=== PATIENT | female | born 1960 | race Caucasian/White ===

== ENCOUNTER 2021-11-13 10:32 | Emergency (ER) | payer OTHER ==
--- OUTSIDE RECORDS SUMMARY | 2021-11-13 10:35 | XMS REPORT | Continuity of Care Document ---
:1960 Author Organization [facility] t Address [address] [place] [address] Care Team Providers Name Role Phone PCP, PATIENT DOES NOT HAVE A Primary Care Physician Unavaila ble 2, Adc Lab Attending Clinician Unavailable Nadege Younger DO Attending Clinician NADEGE YOUGNER Attending Clinician Unavailable Unknown, Attending Attending Clinician Unavailable UNKNOWN, ATTENDING Attending Clinician Unavailable Doctor Unassigned, [place] Attending Clinician Unavailable HOLLY TUCKER Attending Clinician Unavailable CATHRYN JIMENEZ Attending Clinician Unavailable LISETH LAW Attending Clinician Unavailable Hiral Smith Attending Clinician Liseth Law MD Attending Clinician Liana Herman MD Attending Clinician Estefany Conte Attending Clinician ESTEFANY CONTEH Attending Clinician Unavailable LIANA HERMAN Admitting Clinician Unavailable Liana Herman MD Admitting Clinician Payers Payer Name Policy Type Policy Number Effective Date Expiration Date S ource [employer] CARISSA PAPPAS 2020 00:00:00 Problems Condition Condition Condition Status Onset Resolution Last Treating Co mments Source Name Details Category Date Date Treatment Clinician Date Renal cyst Renal cyst Disease Active 2020-03 U nivers 2 ity of 00:00: [address] No known No known Disease Unive rs active active ity of problems problems [facility] Allergies, Adverse Reactions, Alerts Allergy Allergy Status Severity Reaction(s) Onset Inactive Treating Comm ents Source Name Type Date Date Clinician Propoxyp Propensi Active Nausea 2020-03 Univer s hene ty to and/or 04-02 ity of N-Acetam adverse Vomiting 00:00: [place] inophen reaction 00 Medical s Branch PROPOXYP DRUG Active N/V 2020-03 Univers HENE 30 ity of N-ACETAM 00:00: [place] INOPHEN 00 Medical Branch NO KNOWN Drug Active Univers ALLERGIE Class ity of S [facility] Social History Social Habit Start Date Stop Date Quantity Comments Source History of Cigarette Smoker Universi ty of tobacco use [place] [facility] [place] History SDOH University o f Alcohol Frequency [place] [facility] History SDOH University o f Alcohol Std [place] [facility] Drinks Branch History [facility] University o f Alcohol Binge [place] [facility] [place] Exposure to 2021-10-30 2021-11-09 Not sure [facility] SARS-CoV-2 00:00:00 15:55:00 [facility] (event) Branch Tobacco use and 2021-02-01 2021-02-01 Smokeless tobacco Un iversity of exposure 00:00:00 00:00:00 non-user [facility] Alcohol intake 2021-02-01 2021-02-01 Ex-drinker [facility] 00:00:00 00:00:00 (finding) [facility] Alcohol Comment 2021-02-01 2021-02-01 [facility] of 00:00:00 00:00:00 ages 20-30, has [place] [facility] ica not drank since Branch Sex Assigned At [birth year] Universit y of 00:00:00 00:00:00 [facility] Smoking Status Start Date Stop Date Source Ex-smoker 2021-02-01 00:00:00 2021-02-01 00:00:00 Universi ty of [facility] Never smoker University [facility] Medications Ordered Filled Start Stop Current Ordering Indication Dosage Frequency Signature Comments Components Source Medication Medication Date Date Medication? Clinician (SIG) Name Name ondansetron 2020-03 Yes 4mg 4 mg, Slow Univers (ZOFRAN 2-01 IV Push, ity of (PF)) 19:44: Q6HPRN, [place] injection 4 55 Starting Medi steffi mg on Sat Branch 02/01/21 at 1344, Until Discontinu ed, Routine, Nausea and Vomiting (N/V) acetaminoph 2020-03 Yes 1{tbl} 1 tablet, Univers en-codeine 04-04 Oral, ity of (TYLENOL 19:43: Q4HPRN, [place] #3) 300-30 07 Starting Medic al mg tablet 1 on Sat Branch tablet 02/01/21 at 1343, Until Discontinu ed, Routine, Pain (scale 4-6), Pain (scale 7-10) ondansetron 2020-03- No 4mg 4 mg, Slow Univers (ZOFRAN 04-04 IV Push, ity of (PF)) 06:23: 06:24 ONCE, 1 [place] injection 4 00 :00 dose, On Medi steffi mg Sat Branch 02/01/21 at 0030, CARMELA iopamidol 2020-03- No [id number] 120mL 120 mL, Univers (ISOVUE 04-04 Intravenou ity o f 370-500 mL) 05:30: 04:18 s, ONCE, 1 [place] injection 00 :00 dose, On Medica l 120 mL [facility] Branch 01/31/21 at 2330, Routine ketorolac 2020-03- No 15mg 15 mg, Unive rs (TORADOL) 04-04 Slow IV ity of injection 04:15: 03:16 Push, [place] 15 mg 00 :00 ONCE, 1 Medical dose, On Branch e 01/31/21 at 2215, CARMELA
Fa culty member approving Restricted medication : HIRAL ALCARAZ ondansetron 2020-03- No 4mg 4 mg, Slow Univers (ZOFRAN 04-04 IV Push, ity of (PF)) 04:15: 03:16 ONCE, 1 [place] injection 4 00 :00 dose, On Medi steffi mg [facility] Branch 01/31/21 at 2215, CARMELA NaCl 0.9% 2020-03- No 1000mL at 125 Uni vers (NS) IV 04-04 mL/hr, IV ity of infusion 04:15: 05:00 Infusion, Ashish as 1,000 mL 00 :00 ONCE, 1 Medical dose, On Branch 01/31/21 at 2215, CARMLEA ondansetron 2020-03 Yes [id number] 8mg Take 1 Univers 8 mg 2-01 tablet by ity of disintegrat 00:00: mouth [place] ing tablet 00 every 8 Medica l (eight) Branch hours as needed for Nausea and Vomiting (N/V). ondansetron 2020-03 Yes [id number] 8mg Take 1 Univers 8 mg 2-01 tablet by ity of disintegrat 00:00: mouth [place] ing tablet 00 every 8 Medica l (eight) Branch hours as needed for Nausea and Vomiting (N/V). ondansetron 2020-03 Yes [id number] 8mg Take 1 Univers 8 mg 2-01 tablet by ity of disintegrat 00:00: mouth [place] ing tablet 00 every 8 Medica l (eight) Branch hours as needed for Nausea and Vomiting (N/V). ondansetron 2020-03 Yes [id number] 8mg Take 1 Univers 8 mg 2-01 tablet by ity of disintegrat 00:00: mouth [place] ing tablet 00 every 8 Medica l (eight) Branch hours as needed for Nausea and Vomiting (N/V). ondansetron 2020-03 Yes [id number] 8mg Take 1 Univers 8 mg 2-01 tablet by ity of disintegrat 00:00: mouth [place] ing tablet 00 every 8 Medica l (eight) Branch hours as needed for Nausea and Vomiting (N/V). acetaminoph 2020-03- No [id number] 1{tbl} Take 1 U nivers en-codeine 04-04 tablet by ity of 300-30 mg 00:00: 05:59 mouth [place] tablet 00 :00 every 6 Medical (six) Branch hours as needed for Pain (scale 7-10) for up to 5 days. Indication s: acute pain rOPINIRole 2020-2020- No 1mg Take 1 mg U nivers 1 mg tablet 11-05 by mouth. it y of 00:00: 05:59 [place] 00 :00 Medical Branch rOPINIRole 2020-2020- No 1mg Take 1 mg U nivers 1 mg tablet 11-05 by mouth. it y of 00:00: 05:59 [place] 00 :00 Medical Branch Vital Signs Vital Name Observation Time Observation Value Comments Source Systolic blood 2021-02-01 17:53:00 154 mm[Hg] Univer sity of pressure [facility] Branch Diastolic blood 2021-02-01 17:53:00 95 mm[Hg] Unive rsity of pressure [facility] Branch Heart rate 2021-02-01 17:53:00 86 /min Universi ty of [facility] Body temperature 2021-02-01 17:53:00 36.94 Lianna Univ ersity of [facility] Branch Respiratory rate 2021-02-01 17:53:00 20 /min Univ ersity of [facility] Branch Oxygen saturation in 2021-02-01 17:53:00 99 /min University of Arterial blood by [facility] Pulse oximetry Branch Body height 2021-02-01 08:46:00 182.9 cm Universi ty of [place] [facility] [place] Body weight 2021-02-01 08:46:00 88.451 kg Universi ty of [facility] BMI 2021-02-01 08:46:00 26.45 kg/m2 Universi ty of [facility] Branch Systolic blood 2021-01-31 16:12:00 145 mm[Hg] Univer sity of pressure [facility] Branch Diastolic blood 2021-01-31 16:12:00 84 mm[Hg] Unive rsity of pressure [facility] Branch Oxygen saturation in 2021-01-31 16:11:00 100 /min University of Arterial blood by [facility] Pulse oximetry Branch Heart rate 2021-01-31 16:11:00 85 /min Universi ty of [facility] Body temperature 2021-01-31 16:11:00 36.72 Lianna Univ ersity of [place] [facility] Respiratory rate 2021-01-31 16:11:00 18 /min Univ ersity of [facility] Branch Body height 2021-01-31 16:11:00 182.9 cm Universi ty of [place] [facility] Body weight 2021-01-31 16:11:00 84.823 kg Universi ty of [place] [facility] BMI 2021-01-31 16:11:00 25.36 kg/m2 Universi ty of [facility] Branch Procedures Procedure Date / Time Performed Performing Clinician Sour e PHYSICIAN ORDERS 2021-07-04 05:01:00 Doctor Unassigned, No [facility] [place] Name Medical Branch EXTERNAL PROVIDER 2021-03-28 06:01:00 Doctor Unassigned, No [facility] RECORDS Name Medical [place] UREA NITROGEN, URINE 2021-02-01 15:30:00 [facility] Medical Branch SODIUM, URINE RANDOM 2021-02-01 15:30:00 Kleber [facility] CREATININE, URINE 2021-02-01 15:30:00 Kleber [facility] RANDOM Medical Branch PHOSPHORUS 2021-02-01 11:01:00 Abel [facility] [place] [facility] CREATINE KINASE 2021-02-01 11:01:00 Kleber [facility] FERRITIN SERUM 2021-02-01 11:01:00 Tari [facility] BASIC METABOLIC PANEL 2021-02-01 11:01:00 Kleber [facility] (NA, K, CL, CO2, Medical Branch GLUCOSE, BUN, CREATININE, CA) CBC WITH DIFF 2021-02-01 11:01:00 Kleber [facility] Medical [place] COVID-19 (ID NOW RAPID 2021-02-01 06:01:00 Hiral Alcaraz [facility] TESTING) Medical Branch CT ABDOMEN PELVIS W 2021-02-01 04:20:43 Hiral Alcaraz [facility] CONTRAST Medical Branch COMP. METABOLIC PANEL 2021-02-01 03:12:00 Hiral Alcaraz [facility] ([id number]) Medical Branch IRON PANEL 2021-02-01 03:12:00 Abel [facility] Medical [place] CBC WITH DIFF 2021-02-01 03:12:00 Hiral Alcaraz [facility] Medical Branch URINALYSIS 2021-02-01 03:12:00 Hiral Alcaraz [facility] Medical Branch NOTICE OF PRIVACY 2021-02-01 02:41:54 Doctor Unassigned, No Univ [facility] PRACTICES Name Medical Branch CONSENT/REFUSAL FOR 2021-02-01 02:41:33 Doctor Unassigned, No Un [facility] DIAGNOSIS AND Name [facility] TREATMENT POCT URINALYSIS 2021-01-31 16:15:00 Estefany Conteh [facility] Encounters Start End Encounter Admission Attending Care Care Encounter Source Date/Time Date/Time Type Type Clinicians Facility Department ID 2021-11-09 2021-11-09 Magistrate 2, Adc Lab [facility] [id number] Univers 15:45:00 15:56:12 Visit Nadege Younger [id number] ity of [place] PROF[place] [id number] Wa dical NAL [address] [place] [address] 2021-11-09 2021-11-09 Outpatient R [facility] [id number] Univers 15:45:00 15:45:00 [id number] [facility] 2021-11-09 2021-11-09 Outpatient R CARISA [facility] [id number] Univers 15:45:00 15:45:00 [facility] 2021-07-04 2021-07-04 Magistrate 2, Adc Lab [facility] 1.2.840.114 [id number] Univers 11:00:00 11:15:00 Visit Unknown, Tin ASKEW 350.1.13.1 0 ity of [place] PROF[place] [id number] Wa dical NAL [address] [place] [address] 2021-07-04 2021-07-04 Outpatient R [facility] [id number] Univers 11:00:00 11:00:00 [id number] ity [facility] 2021-07-04 2021-07-04 Outpatient R UNKNOWN, [facility] [id number] Univers 11:00:00 11:00:00 ATTENDING ity [facility] 2021-07-04 2021-07-04 Orders Doctor MICHAUD 1.2.840.114 [id number] Univers 00:00:00 00:00:00 Only Unassigned, XIMENA 350.1.13.10 ity of [place] [facility] 4.2.7.2.686 Ashish as [id number] [address] 2021-03-28 2021-03-28 Orders Doctor JASWANT 1.2.840.114 [id number] Univers 00:00:00 00:00:00 Only Unassigned, XIMENA 350.1.13.10 ity of [facility] 4.2.7.2.686 Ashish as [id number] [facility] 009 [place] 2021-02-08 2021-02-08 [facility] [id number] Univers 08:00:00 08:00:00 HOLLY [id number] ity [facility] 2021-02-08 2021-02-08 [facility] [id number] Univers 08:00:00 08:00:00 HOLLY [facility] 2021-02-06 2021-02-06 [facility] [id number] Univers 16:30:00 16:30:00 CATHRYN [id number] [facility] 2021-02-06 2021-02-06 [facility] [id number] Univers 16:30:00 16:30:00 CATHRYN [facility] 2021-01-31 2021-02-01 [id number] Univers 20:54:00 18:00:00 LISETH [facility] 2021-01-31 2021-02-01 Emergency Hiral Alcaraz 1.2.840. 114 [id number] Univers 20:54:00 18:00:00 Liseth Law 350.1.13. 10 ity of [facility] 4.2.7.2.686 [place] [id number] [facility] 095 Branch 2021-01-31 2021-01-31 Urgent [facility] 1.2.840.114 [id number] Univers 10:00:36 10:42:05 Care [facility] [address] 350.1.13.10 i ty of [place] 4.2.7.2.686 Ashish as ANIKA?BLEA [id number] Wa indu [address] MEDICAL OFFICE BUILDING 2021-01-31 2021-01-31 Outpatient R YADY, [facility] [id number] Univers 10:00:00 10:42:05 ESTEFANY johnson [facility] Results Test Description Test Time Test Comments Results Result Comments Source FERRITIN SERUM 2021-02-01 21:31:12 Test Item Value Reference Range Interpretation Comme nts FERRITIN (test code = 2675253059) 179.0 ng/mL 11.0-264.0 ONIEL (test code = ONIEL) Biotin has been reported to cause a negative bias, interpret results relative to patient's use of biotin. Lab Interpretation (test code = Normal 85878-0) [facility] [id number] 20:54:26 Test Item Value Reference Range Interpretation Comments IRON (test code = 0293241466) 26 ug/dL 50-160 L TIBC (test code = 4473256537) 258 ug/dL 250-410 % FE SAT (test code = 9630564943) 10 % 20-50 L Lab Interpretation (test code = Abnormal 22257-0) [facility] [id number] 19:30:45 Test Item Value Reference Range Interpretation Comments PHOSPHORUS (test code = 1007752694) 3.8 mg/dL 2.5-5.0 Lab Interpretation (test code = Normal 11607-5) [facility] [id number] 14:25:10 Test Item Value Reference Range Interpretation Comments CK (test code = 3527096592) 53 U/L 33-194 Lab Interpretation (test code = Normal 24015-4) [facility] (NA, K, CL, CO2, GLUCOSE, BUN, CREATININE, CA)2021-02-01 11:34:55 Test Item Value Reference Range Interpretation Comments NA (test code = 137 mmol/L 135-145 7309574038) K (test code = 4.3 mmol/L 3.5-5.0 0229537073) CL (test code = 106 mmol/L 98-108 8893977809) CO2 TOTAL (test code = 25 mmol/L 23-31 5436426586) AGAP (test code = 2-16 8014348557) BUN (test code = 19 mg/dL 7-23 2874816009) GLUCOSE (test code = 107 mg/dL 70-110 8667116568) CREATININE (test code = 1.23 mg/dL 0.50-1.04 H 4593657156) CALCIUM (test code = 8.9 mg/dL 8.6-10.6 2887579411) eGFR (test code = mL/min/1.73m2 8470949528) ONIEL (test code = ONIEL) Association of Glomerular Filtration Rate (GFR) and Staging of Kidney Disease* + --+ --+ ------+| GFR (mL/min/1.73 m2) ?| With Kidney Damage ?| ?Without Kidney Damage+ --------+ --------+ +| ?>90 ?| ?Stage one ?| ? Normal ?+ ---+ ---+ -------+| ?60-89 ?| ?Stage two ?| ? Decreased GFR ? + --+ --+ ------+| ?30-59 ?| ?Stage three ?| ? Stage three ? + --+ --+ ------+| ?15-29 ?| ?Stage four ? | ? Stage four ?+ ---+ ---+ -------+| ?<15 (or dialysis) ? ?| ?Stage five ? | ? Stage five ?+ ---+ ---+ -------+ *Each stage assumes the associated GFR level has been in effect for at least three months. ?Stages 1 to 5, with or without kidney disease, indicate chronic kidney disease. Notes: Determination of stages one and two (with eGFR >59mL/min/1.73 m2) requires estimation of kidney damage for at least three months as defined by structural or functional abnormalities of the kidney, manifested by either:Pathological abnormalities or Markers of kidney damage (including abnormalities in the composition of the blood or urine or abnormalities in imaging tests). Lab Interpretation Abnormal (test code = 74620-3) [facility] WITH [id number] 11:09:34 Test Item Value Reference Range Interpretation Comments WBC (test code = See_Comment [Automated 1281-2) message] The sy stem which generated this result transmitted reference range : 4.30 - 11.10 10*3/?L. The reference range was not used to interpret this result as normal/abnormal . RBC (test code = See_Comment L [Automated 789-8) message] The sy stem which generated this result transmitted reference range : 3.93 - 5.25 10*6/?L. The reference range was not used to interpret this result as normal/abnormal . HGB (test code = 11.3 g/dL 11.6-15.0 L 718-7) HCT (test code = 32.4 % 35.7-45.2 L 4544-3) MCV (test code = 90.0 fL 80.6-95.5 787-2) MCH (test code = 31.4 pg 25.9-32.8 785-6) MCHC (test code = 34.9 g/dL 31.6-35.1 786-4) RDW-SD (test code = 38.6 fL 39.0-49.9 L 01141-7) RDW-CV (test code = 11.8 % 12.0-15.5 L 788-0) PLT (test code = See_Comment L [Automated 777-3) message] The sy stem which generated this result transmitted reference range : 166 - 358 10*3/ ?L. The reference r radha was not used to interpret this result as normal/abnormal . MPV (test code = 11.5 fL 9.5-12.9 05513-3) NRBC/100 WBC (test See_Comment [Automat ed code = 6189036381) message] The system which generated this result transmitted reference range : 0.0 - 10.0 /100 WBCs. The refer ence range was not u sed to interpret th is result as normal/abnormal . NRBC x10^3 (test code <0.01 See_Comment [Auto mated = 6247765686) message] The s ystem which generated this result transmitted reference range : 10*3/?L. The reference range was not used to interpret this result as normal/abnormal . GRAN MAT (NEUT) % 70.9 % (test code = 770-8) IMM GRAN % (test code 0.10 % = 3472685896) LYMPH % (test code = 18.2 % 736-9) MONO % (test code = 10.6 % 5905-5) EOS % (test code = 0.1 % 713-8) BASO % (test code = 0.1 % 706-2) GRAN MAT x10^3(ANC) 5.78 10*3/uL 1.88-7.09 (test code = 5481729740) IMM GRAN x10^3 (test <0.03 0.00-0.06 code = 7344935221) LYMPH x10^3 (test code 1.48 10*3/uL 1.32-3.29 = 731-0) MONO x10^3 (test code 0.86 10*3/uL 0.33-0.92 = 742-7) EOS x10^3 (test code = <0.03 0.03-0.39 L 711-2) BASO x10^3 (test code <0.03 0.01-0.07 = 704-7) Lab Interpretation Abnormal (test code = 49561-7) [facility]. METABOLIC PANEL (11760)2021-02-01 04:04:54 Test Item Value Reference Range Interpretation Comments NA (test code = 133 mmol/L 135-145 L 6331764880) K (test code = 4.0 mmol/L 3.5-5.0 8714881734) CL (test code = 99 mmol/L 98-108 4914280595) CO2 TOTAL (test code = 26 mmol/L 23-31 6907078502) AGAP (test code = 2-16 2989687638) BUN (test code = 21 mg/dL 7-23 8748617914) GLUCOSE (test code = 118 mg/dL 70-110 H 3837688052) CREATININE (test code = 0.98 mg/dL 0.50-1.04 4564466613) TOTAL BILI (test code = 0.8 mg/dL 0.1-1.2 4649370112) CALCIUM (test code = 9.4 mg/dL 8.6-10.6 7406308447) T PROTEIN (test code = 7.1 g/dL 6.3-8.2 4983242448) ALBUMIN (test code = 4.2 g/dL 3.5-5.0 5376134025) ALK PHOS (test code = 83 U/L 34-122 0163345960) ALTv (test code = 22 U/L 5-35 1742-6) AST(SGOT) (test code = 28 U/L 13-40 2520031980) eGFR (test code = mL/min/1.73m2 4829848436) ONIEL (test code = ONIEL) Association of Glomerular Filtration Rate (GFR) and Staging of Kidney Disease* + --+ --+ ------+| GFR (mL/min/1.73 m2) ?| With Kidney Damage ?| ?Without Kidney Damage+ --------+ --------+ +| ?>90 ?| ?Stage one ?| ? Normal ?+ ---+ ---+ -------+| ?60-89 ?| ?Stage two ?| ? Decreased GFR ? + --+ --+ ------+| ?30-59 ?| ?Stage three ?| ? Stage three ? + --+ --+ ------+| ?15-29 ?| ?Stage four ? | ? Stage four ?+ ---+ ---+ -------+| ?<15 (or dialysis) ? ?| ?Stage five ? | ? Stage five ?+ ---+ ---+ -------+ *Each stage assumes the associated GFR level has been in effect for at least three months. ?Stages 1 to 5, with or without kidney disease, indicate chronic kidney disease. Notes: Determination of stages one and two (with eGFR >59mL/min/1.73 m2) requires estimation of kidney damage for at least three months as defined by structural or functional abnormalities of the kidney, manifested by either:Pathological abnormalities or Markers of kidney damage (including abnormalities in the composition of the blood or urine or abnormalities in imaging tests). Lab Interpretation Abnormal (test code = 68236-4) [facility] WITH [id number] 03:59:14 Test Item Value Reference Range Interpretation Comments WBC (test code = See_Comment [Automated 8497-2) message] The sy stem which generated this result transmitted reference range : 4.30 - 11.10 10*3/?L. The reference range was not used to interpret this result as normal/abnormal . RBC (test code = See_Comment L [Automated 889-8) message] The sy stem which generated this result transmitted reference range : 3.93 - 5.25 10*6/?L. The reference range was not used to interpret this result as normal/abnormal . HGB (test code = 12.2 g/dL 11.6-15.0 718-7) HCT (test code = 36.0 % 35.7-45.2 4544-3) MCV (test code = 92.8 fL 80.6-95.5 787-2) MCH (test code = 31.4 pg 25.9-32.8 785-6) MCHC (test code = 33.9 g/dL 31.6-35.1 786-4) RDW-SD (test code = 40.6 fL 39.0-49.9 02572-0) RDW-CV (test code = 11.9 % 12.0-15.5 L 788-0) PLT (test code = See_Comment L [Automated 777-3) message] The sy stem which generated this result transmitted reference range : 166 - 358 10*3/ ?L. The reference r radha was not used to interpret this result as normal/abnormal . MPV (test code = 11.5 fL 9.5-12.9 27853-2) NRBC/100 WBC (test See_Comment [Automat ed code = 5620004957) message] The system which generated this result transmitted reference range : 0.0 - 10.0 /100 WBCs. The refer ence range was not u sed to interpret th is result as normal/abnormal . NRBC x10^3 (test code <0.01 See_Comment [Auto mated = 1909494336) message] The s ystem which generated this result transmitted reference range : 10*3/?L. The reference range was not used to interpret this result as normal/abnormal . GRAN MAT (NEUT) % 79.0 % (test code = 770-8) IMM GRAN % (test code 0.40 % = 0260888121) LYMPH % (test code = 12.3 % 736-9) MONO % (test code = 7.8 % 5905-5) EOS % (test code = 0.3 % 713-8) BASO % (test code = 0.2 % 706-2) GRAN MAT x10^3(ANC) 7.67 10*3/uL 1.88-7.09 H (test code = 9488446930) IMM GRAN x10^3 (test 0.04 10*3/uL 0.00-0.06 code = 7201323015) LYMPH x10^3 (test code 1.19 10*3/uL 1.32-3.29 L = 731-0) MONO x10^3 (test code 0.76 10*3/uL 0.33-0.92 = 742-7) EOS x10^3 (test code = 0.03 10*3/uL 0.03-0.39 711-2) BASO x10^3 (test code <0.03 0.01-0.07 = 704-7) Lab Interpretation Abnormal (test code = 87075-5) [facility] SPECIFIC [id number] 16:21:00 Test Item Value Reference Range Interpretation Comments POCT U SP GRAV (test 1.010 mg/dl 1.005-1.025 code = 3255) POCT PH U (test code = 5 mg/dl 5-8 3254) POCT U LEUK EST (test 1+ Negative - code = 3263) Negative POCT U NIT (test code negative Negative - = 3262) Negative POCT U PROT (test code trace Negative - = 3259) Negative POCT U GLU (test code negative Negative - = 3256) Negative POCT U KETONE (test negative Negative - code = 3258) Negative POCT U UROBILI (test normal 0.2-1 code = 3260) POCT U BILI (test code negative Negative - = 3261) Negative POCT U BLD (test code Negative - = 3257) Negative POCT U COLOR (test luisa code = 3266) POCT U APPEAR (test ckiudy code = 3267) ONIEL (test code = ONIEL) accurate development and interpretation of all internal controls Lab Interpretation Abnormal (test code = [id number]) [facility]"
[2021-11-13 11:08] LABS: Hematocrit 39.1 % (36.0-45.0); Lymphocytes % 12.6 % (15.3-44.8); MCV 92.6 fL (80-100); MPV 9.5 fL (7.6-11.3); RBC Red Blood Cell Count 4.23 M/uL (3.86-4.86)
[2021-11-13 11:32] LABS: Albumin 3.1 g/dL (3.4-5.0); Bilirubin Total 0.5 mg/dL (0.2-1.0); Potassium 3.9 mmol/L (3.5-5.1); Protein, Total 6.2 g/dL (6.4-8.2)
[2021-11-13 12:21] LABS: Urine Blood Negative (Negative); Urine Glucose Negative (Negative); Urine Protein Negative (Negative); Urine Specific Gravity <=1.005 (1.005-1.030); Urine pH 5.5 (5.0-7.0)
--- NOTE | 2021-11-13 12:34 | RAD REPORT ---
EXAM DESCRIPTION: CTAbdomen Pelvis W Contrast - 11/13/2021 11:57 am CLINICAL HISTORY: Abdominal pain. lower abdominal pain COMPARISON: No comparisons TECHNIQUE: Biphasic CT imaging of the abdomen and pelvis was performed with 100 ml non-ionic IV cont rast. All CT scans are performed using dose optimization technique as appropriate and may include automated exposure control or mA/KV adjustment according to patient size. FINDINGS: The lung bases are clear. Numerous cysts are present in the liver, largest in the right lobe measuring 8.8 cm. Multiple cysts a re present of varying density in both kidneys compatible with polycystic kidney disease. The spleen a nd adrenal glands are within normal limits. No pancreatic finding of concern. There is a fairly significant diffuse thickening of the entire colon. This is compatible with a moder ate pancolitis. Mild free fluid is seen in the pelvis. No bowel obstruction or free air. The appendix is normal. No evidence of significant lymphadenopathy. No suspicious bony findings. IMPRESSION: Moderately severe diffuse pancolitis is present. This may be infectious, pseudomembranou s or related to inflammatory bowel disease. Innumerable renal hepatic cysts suggests underlying polycystic kidney disease.
--- NOTE | 2021-11-13 15:26 | EDPHYS ---
Physician Documentation [facility] Name: Shy Mathew Age: 61 yrs Sex: Female : 1960 Arrival Date: 11/13/2021 Time: 10:35 Bed 10 Private MD: ED Physician Jim Mccurdy HPI: 11/13 11:14 This 61 yrs old Female presents to ER via Ambulatory with complaints of Diarrhea, jmm Abdominal Cramping. 11:14 The patient presents to the emergency department with nausea, diarrhea, abdominal pain. jmm Onset: The symptoms/episode began/occurred gradually, 11 day(s) ago. Possible causes: unknown. This is a 61 year old female with a history of ckd, rls that presents to the ED with complaints of lower abdominal pain, diarrhea beginning approx 11 days ago. . Historical: - Allergies: 10:47 Vicodin; aa5 - PMHx: 10:47 chronic kidney disease; RLS; aa5 - PSHx: 10:48 skin cancer removed; aa5 - Immunization history:: Adult Immunizations unknown. - Social history:: Smoking status: Patient denies any tobacco usage or history of. ROS: 21:20 Constitutional: Positive for fatigue. jmm 21:20 Abdomen/GI: Positive for abdominal pain, nausea and vomiting, diarrhea. 21:20 All other systems are negative. Exam: 21:20 Constitutional: This is a well developed, well nourished patient who is awake, alert, jmm and in no acute distress. Head/Face: atraumatic. Eyes: EOMI, no conjunctival erythema appreciated ENT: Moist Mucus Membranes Neck: Trachea midline, Supple Chest/axilla: Normal chest wall appearance and motion. Cardiovascular: Regular rate and rhythm. No edema appreciated Respiratory: Normal respirations, no respiratory distress appreciated 21:20 Back: Normal ROM Skin: General appearance color normal MS/ Extremity: Moves all extremities, no obvious deformities appreciated, no edema noted to the lower extremities Neuro: Awake and alert Psych: Behavior is normal, Mood is normal, Patient is cooperative and pleasant 21:20 Abdomen/GI: Inspection: abdomen appears normal, Bowel sounds: normal, Palpation: soft, mild abdominal tenderness, in the right lower quadrant and left lower quadrant. Vital Signs: 10:46 BP 146 / 75; Pulse 74; Resp 18 S; Temp 97.7(TE); Pulse Ox 99% on R/A; Weight 83.91 kg aa5 (R); Height 6 ft. 0 in. (182.88 cm) (R); 15:21 BP 146 / 79; Pulse 81; Resp 16; Pulse Ox 98% ; em6 10:46 Body Mass Index 25.09 (83.91 kg, 182.88 cm) MDM: 11:13 Patient medically screened. [facility] 15:25 Data reviewed: vital signs, nurses notes. Counseling: I had a detailed discussion with eduard the patient and/or guardian regarding: the historical points, exam findings, and any diagnostic results supporting the discharge/admit diagnosis, the need for outpatient follow up, to return to the emergency department if symptoms worsen or persist or if there are any questions or concerns that arise at home. 11/13 10:49 Order name: CBC with Diff; Complete Time: 11:13 [facility] 11/13 10:49 Order name: CMP; Complete Time: 11:37 [facility] 11/13 10:49 Order name: Lipase; Complete Time: 11:37 [facility] 11/13 11:13 Order name: CT Abd/Pelvis - IV Contrast Only; Complete Time: 12:37 [facility] 11/13 12:21 Order name: Urine Dipstick-Ancillary; Complete Time: 12:30 [facility] 11/13 12:42 Order name: CDIFF [facility] 11/13 10:49 Order name: IV Saline Lock; Complete Time: 10:58 [facility] 11/13 10:49 Order name: Labs collected and sent; Complete Time: 10:58 [facility] 11/13 11:13 Order name: Urine Dipstick-Ancillary (obtain specimen); Complete Time: 12:20 [facility] Administered Medications: 15:40 Drug: Flagyl (metroNIDAZOLE) 500 mg Route: PO; em6 15:54 Follow up: Response: No adverse reaction em6 15:40 Drug: Cipro (ciprofloxacin) 250 mg Route: PO; em6 15:54 Follow up: Response: No adverse reaction em6 Disposition Summary: 11/13/21 15:26 Discharge Ordered Location: Home [facility] Condition: Stable [facility] Diagnosis - Colitis [facility] Followup: [facility] - With: Private Physician - When: 2 - 3 days - Reason: Recheck today's complaints, Continuance of care, Re-evaluation by your physician Discharge Instructions: - Discharge Summary Sheet [facility] - Colitis [facility] Forms: - Medication Reconciliation Form [facility] - Thank You Letter eduard - Antibiotic Education [facility] - Prescription Opioid Use [facility] Prescriptions: - Cipro 250 mg Oral Tablet - take 1 tablet by ORAL route every 12 hours for 10 days; 20 tablet; Refills: 0, [facility] Product Selection Permitted - Flagyl 500 mg Oral Tablet - take 1 tablet by ORAL route every 6 hours for 10 days; 40 tablet; Refills: 0, [facility] Product Selection Permitted - Medrol (Renny) 4 mg Oral Tablets, Dose Pack - take 1 tablet by ORAL route as directed - follow package instructions; 1 [facility] packet; Refills: 0, Product Selection Permitted Signatures: Dispatcher [employer] He Forrester PA PA jmm Calderon, Audri, RN RN aa5 Raina Diego RN RN em6
--- NOTE | 2021-11-13 15:26 | ER ---
Nurse's Notes [facility] Name: Shy Mathew Age: 61 yrs Sex: Female : 1960 Arrival Date: 11/13/2021 Time: 10:35 Bed 10 Private MD: Diagnosis: Colitis Presentation: 11/13 10:45 Chief complaint: Patient states: diarrhea x 11 days ago, pt also reports abd cramping, aa5 and reports being seen by PCP and prescribed pantoprazole and hyoscyamine. Coronavirus screen: diarrhea. Ebola Screen: Patient denies travel to an Ebola-affected area in the 21 days before illness onset. Initial Sepsis Screen: Does the patient meet any 2 criteria? No. Patient's initial sepsis screen is negative. Does the patient have a suspected source of infection? No. Patient's initial sepsis screen is negative. Risk Assessment: Do you want to hurt yourself or someone else? Patient reports no desire to harm self or others. Onset of symptoms was November 2021. 10:45 Acuity: DEON 3 aa5 10:45 Method Of Arrival: Ambulatory aa5 Historical: - Allergies: 10:47 Vicodin; aa5 - PMHx: 10:47 chronic kidney disease; RLS; aa5 - PSHx: 10:48 skin cancer removed; aa5 - Immunization history:: Adult Immunizations unknown. - Social history:: Smoking status: Patient denies any tobacco usage or history of. Screenin:10 Abuse screen: Denies threats or abuse. Nutritional screening: No deficits noted. em6 Tuberculosis screening: No symptoms or risk factors identified. Fall Risk IV access (20 points). Total Alvarez Fall Scale indicates No Risk (0-24 pts). Assessment: 12:10 General: Appears in no apparent distress. comfortable, Behavior is calm, cooperative. em6 12:10 Neuro: Short Agitation-Sedation Scale (RASS): 0 - Alert and Calm Level of em6 Consciousness is awake, alert, obeys commands, Oriented to person, place, time, situation. Cardiovascular: Capillary refill < 3 seconds Patient's skin is warm and dry. Respiratory: Airway is patent Respiratory effort is even, unlabored, Respiratory pattern is regular, symmetrical. GI: Abdomen is non-distended, Abd is soft and non tender Reports diarrhea. : No signs and/or symptoms were reported regarding the genitourinary system. EENT: No signs and/or symptoms were reported regarding the EENT system. Derm: No signs and/or symptoms reported regarding the dermatologic system. Musculoskeletal: Circulation, motion, and sensation intact. Range of motion: intact in all extremities. 12:10 Pain: Complains of pain in abdomen Pain does not radiate. Pain currently is 3 out of 10 em6 on a pain scale. 13:10 Reassessment: Patient appears in no apparent distress at this time. No changes from em6 previously documented assessment. Patient and/or family updated on plan of care and expected duration. Pain level reassessed. Patient is alert, oriented x 3, equal unlabored respirations, skin warm/dry/pink. 14:10 Reassessment: Patient appears in no apparent distress at this time. Patient and/or em6 family updated on plan of care and expected duration. Pain level reassessed. Patient is alert, oriented x 3, equal unlabored respirations, skin warm/dry/pink. Patient states feeling better. 15:17 Reassessment: Patient appears in no apparent distress at this time. No changes from em6 previously documented assessment. Patient is alert, oriented x 3, equal unlabored respirations, skin warm/dry/pink. Vital Signs: 10:46 BP 146 / 75; Pulse 74; Resp 18 S; Temp 97.7(TE); Pulse Ox 99% on R/A; Weight 83.91 kg aa5 (R); Height 6 ft. 0 in. (182.88 cm) (R); 15:21 BP 146 / 79; Pulse 81; Resp 16; Pulse Ox 98% ; em6 10:46 Body Mass Index 25.09 (83.91 kg, 182.88 cm) aa5 ED Course: 10:35 Patient arrived in ED. rg4 10:45 Arm band placed on. aa5 10:46 Triage completed. aa5 10:58 CBC with Diff Sent. mb7 10:58 CMP Sent. mb7 10:58 Lipase Sent. mb7 10:58 Inserted saline lock: 20 gauge in left antecubital area, using aseptic technique. Blood mb7 collected. 11:05 He Hernandez PA is PHCP. orestes 11:05 Jim Mccurdy MD is Attending Physician. orestes 11:59 CT Abd/Pelvis - IV Contrast Only In Process Unspecified. EDMS 12:10 Bed in low position. Call light in reach. em6 13:48 CDIFF Sent. em6 13:49 stool sample sent. em6 15:54 No provider procedures requiring assistance completed. IV discontinued, intact, em6 bleeding controlled, No redness/swelling at site. Pressure dressing applied. Administered Medications: 15:40 Drug: Flagyl (metroNIDAZOLE) 500 mg Route: PO; em6 15:54 Follow up: Response: No adverse reaction em6 15:40 Drug: Cipro (ciprofloxacin) 250 mg Route: PO; em6 15:54 Follow up: Response: No adverse reaction em6 Medication: 15:55 VIS not applicable for this client. em6 Outcome: 15:26 Discharge ordered by . [facility] 15:54 Discharged to home ambulatory, with significant other. em6 15:54 Condition: stable 15:54 Discharge instructions given to patient, significant other, Instructed on discharge instructions, follow up and referral plans. medication usage, Demonstrated understanding of instructions, follow-up care, medications, Prescriptions given X 3. 15:55 Patient left the ED. em6 Signatures: Dispatcher [employer] EDMS He Hernandez PA PA jmm Calderon, Audri, RN RN caterina5 Danii Peña Mary mb7 Raina Diego, RN RN em6 Corrections: (The following items were deleted from the chart) 10:48 10:45 Chief complaint: Patient states: diarrhea x 11 days ago, pt also reports abd aa5 cramping, and reports being seen by PCP and prescribed aa5 10:49 10:45 Chief complaint: Patient states: diarrhea x 11 days ago, pt also reports abd aa5 cramping, and reports being seen by PCP and prescribed pantoprazole aa5 10:50 10:45 Chief complaint: Patient states: diarrhea x 11 days ago, pt also reports abd aa5 cramping, and reports being seen by PCP and prescribed pantoprazole and hyoscyamine aa5 12:35 12:10 GI: Abdomen is non-distended, Abd is soft and non tender em6 em6 14:42 12:10 GI: Abdomen is non-distended, Abd is soft and non tender Reports diarrhea, em6 em6
[2021-11-13] MEDS ORDERED: metroNIDAZOLE 500 MG TABLET ONE (15:45)
[2021-11-13] MEDS ORDERED: CIPROFLOXACIN HCL 500 MG TAB ONE (15:45)
[2021-11-13 16:11] VITALS: TEMP 97.7
[2021-11-13 16:22] VITALS: BP 146/79; O2SAT 98
[2021-11-14 13:01] LABS: C.diff Antigen/Toxin Ag neg : Tox neg (NEG : NEG)
== END 2021-11-13 15:55 | disposition home or self-care (01) ==
LOC: ER 10:32
DX: K52.9 Noninfective gastroenteritis and colitis, unspecified (principal); N18.9 Chronic kidney disease, unspecified; Z88.5 Allergy status to narcotic agent
CPT/HCPCS: 85025; 36415; 81003; 87324; 83690; 80053; 74177; 99284; Q9967